=== PATIENT | male | born 1985 | race Caucasian/White ===

== ENCOUNTER 2020-10-17 12:48 | Outpatient (CLI) | payer OTHER, SELFPAY ==
[2020-10-17 14:06] LABS: Influenza Control Valid (Valid)
[2020-10-17 23:57] LABS: SARS-CoV-2 RNA PCR Negative
== END 2020-10-17 12:49 | disposition home or self-care (01) ==
LOC: CHSLAB 12:52
PROVIDERS: PCP Family Medicine; Visit Provider Family Medicine
DX: J00 Acute nasopharyngitis [common cold] (principal); Z20.828 Contact with and (suspected) exposure to other viral communicable diseases
CPT/HCPCS: 87635; 87804; C9803; U0003

== ENCOUNTER 2023-01-06 14:02 | Emergency (ER) | payer OTHER, SELFPAY ==
--- NOTE | ~2023-01-06 | XR_ITS ---
EXAM: XR foot LT min 3V DATE: 01/06/2023 14:27 HISTORY: Eversion injury, pain to medial aspect, cannot put pressure . COMPARISON: None available. FINDINGS: Normal mineralization. Comminuted fracture of the left calcaneus. Decreased Boehler's angl e. A major fracture line runs transversely through the midportion of the calcaneus, with 4 mm distrac tion/separation. Fracture lines extend to subtalar facets and the calcaneonavicular articulation. Fra cture lines also appear to extend to the superior and posterior margins of the posterior calcaneus, a combination of both tongue type and depression fracture patterns. No lytic or blastic lesion. Joint spaces are maintained. No erosion or periosteal change. Soft tissue swelling about the hindfoot. IMPRESSION: Comminuted left calcaneal fracture. Reviewed, dictated and finalized at location [facility]. [facility]
[2023-01-06 14:05] VITALS: BP 119/81; PULSE 104; RESP 18; TEMP 37.1; O2SAT 99
--- NOTE | 2023-01-06 14:09 | ED.LOWEXIN ---
HPI - Extremity Injury (Lower) General Chief Complaint: Extremity Injury, Lower Stated Complaint: left ankle injury Time Seen by Provider: 01/06/23 14:09 Source: patient and RN notes reviewed Mode of arrival: wheelchair Limitations: no limitations History of Present Illness Onset (ago): minute(s) (20) Injury: Left: ankle and foot Type of Injury: eversion Place: street/outdoors Severity: moderate Relieving factors: rest Exacerbating factors: weight bearing, movement and palpation Context: jumping ( off swing) Associated symptoms: swelling and able to partially bear weight Other symptoms: none Related Data Home Medications Medication Instructions Recorded Confirmed citalopram 20 mg tablet 20 mg PO DAILY 01/06/23 01/06/23 Allergies Allergy/AdvReac Type Severity Reaction Status Date / Time No Known Allergies Allergy Verified 01/06/23 14:08 Review of Systems Review of Systems: All systems reviewed & are unremarkable except as noted in HPI and below PMFSH Past Medical History Medical History (Updated 01/06/23 @ 14:52 by Karl Bauman MD) Depression Surgical History Surgical History (Updated 01/06/23 @ 14:19 by Kalr Bauman MD) History of appendectomy Social History Social History (Updated 01/06/23 @ 14:19 by Karl Bauman MD) Smoking packs per day: 0.5 Smoking cigarettes per day: 10.0 Smoking status: Current every day smoker Tobacco type: cigarettes Exam Const: General: healthy appearing, no acute distress and alert Nutritional Appearance: well nourished Orientation/consciousness: patient oriented x3 Limitations: no limitations HENMT: Head: normal to inspection Ears: external ears normal Eyes: Conjunctivae: conjunctivae normal Pupils: Equal, round and reactive pupils present EOM: EOMs intact bilaterally Neck: Neck: normal visual inspection Resp: Effort & Inspection: normal respiratory effort Auscultation: clear to auscultation bilaterally Cardio: Rate: regular rate Rhythm: regular rhythm GI: GI Palp: Yes Soft to palpation and No Tenderness to palpation present (GI) Auscultation: normal bowel sounds Back/Spine/Pelvis: Cervical Spine: cervical ROM normal Thoracic/Lumbar Spine: thoraco-lumbar ROM normal Skin: General skin exam: normal color Rashes: no rashes Neuro: General: patient oriented x3, moves all extremities, no focal motor deficits and CN's II-XI intact bilaterally Speech: normal speech Extrem: General: no clubbing, cyanosis or edema Left lower extremity: ankle Details: normal to inspection; no tenderness, no swelling, no ecchymosis and no crepitus and foot Details: tenderness Location: of the medial foot Location: in the mid-section and proximally; not of the base of the 5th metatarsal, vascular exam (normal) Details: normal capillary refill and motor-sensory exam (normal); no crepitus Psych: Mental Status: mental status grossly normal Affect: normal affect Attitude: cooperative Course Vital Signs Vital signs: Vital Signs Temperature 37.1 C 01/06/23 14:05 Pulse Rate 104 H 01/06/23 14:05 Respiratory Rate 18 01/06/23 14:05 Blood Pressure 119/81 01/06/23 14:05 Pulse Oximetry 99 01/06/23 14:05 Oxygen Delivery Room Air 01/06/23 14:05 Temperature 36.9 C 01/06/23 15:15 Pulse Rate 85 01/06/23 15:15 Respiratory Rate 16 01/06/23 15:15 Blood Pressure 124/60 01/06/23 15:15 Pulse Oximetry 99 01/06/23 15:15 Oxygen Delivery Room Air 01/06/23 15:15 Procedures Orthopedic Splinting/Casting Injury #1: Splinting/Casting Date: 01/06/23 Side: left Lower Extremity Injury Location: foot Pre-Formed: walking boot Pre-Procedure Neuro Vascular Exam: normal Post-Procedure Neuro Vascular Exam: normal Other Orthopedic Equipment: crutches ( Rx written) Additional Comments: initial fracture management completed in the ER MDM - Extremity Injury (Lower) Differential Diagnosis
[2023-01-06] MEDS: HYDROmorphone HCL INJ (*CRX) 2 MG/ML VIAL 1 MG IM (14:53)
[2023-01-06 15:05] VITALS: BP 112/66; PULSE 80; RESP 14; O2SAT 98
[2023-01-06 15:15] VITALS: BP 124/60; PULSE 85; RESP 16; TEMP 36.9; O2SAT 99
== END 2023-01-06 15:20 | disposition home or self-care (01) ==
PROVIDERS: Emergency Provider Emergency Medicine; PCP Family Medicine
DX: S92.015A Nondisplaced fracture of body of left calcaneus, initial encounter for closed fracture (principal); F32.A Depression, unspecified; F17.210 Nicotine dependence, cigarettes, uncomplicated; X50.0XXA Overexertion from strenuous movement or load, initial encounter
CPT/HCPCS: 73630; 96372; 99284; J1170; L2112

== ENCOUNTER 2023-04-02 13:04 | Outpatient (RCR) | payer OTHER, SELFPAY ==
--- NOTE | 2023-04-02 13:59 | PTOPEVAL1 ---
Assessment and note entered by Valentino Amin Evaluation Information Assessment Status Evaluation Diagnosis calcaneus fx left Onset 01/08/23 Subjective Information Pt. reports that he injured the left heel after jumping off a swing set. He reports that he went to the ER after the accident. He reports that he underwent surgery 2-3 weeks after the injury. Pt. reports that he has been in a boot since surgery. He reports that he is suppose to be putting about 30# through the left foot. He reports that current pain levels are 2/10, and may increase during the evening. He notices some soreness throughout the entire foot. 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 He states he had no complication prior to his injury. He reports that his goal is to return to walking normally. Reported Pain Level Pain Score 2: Self Report Assessment PT Clinical Summary Pt. is a 37 year old male post calcaneus fx. He presents with impaired gait, impaired ROM, pain and weakness on this date. Continued skilled PT is indicated in order to improve these areas to allow the pt. to be able to return to normal gait and all work related duties without limitation. Plan of Care Interventions Electrical Stimulation,Gait Training,Hot Pack/Cold Pack,Intermittent Compression,Manual Therapy, Neuro Re-education,Therapeutic Activities, Therapeutic Exercise PT Services Indicated Yes Treatment Frequency and 2x/week x 12 visits Duration These treatments will address the objective and functional deficits as defined above. The patient will be advanced safely and appropriately in order for the patient to progress towards his/her prior level of function. Additional exercises will be introduced and as well as a comprehensive home exercise program upon discharge, if needed, ?to ensure carryover of functional gains achieved in the clinic. This treatment plan has been reviewed and agreement upon by the patient.
--- NOTE | 2023-04-02 14:01 | OPREHPOC ---
Outpatient Therapy Plan of Care This is a Multidisciplinary Plan of Care that may contain components documented by all disciplines (PT, OT, and ST.) PT Problem 1 PT Problem #1 Knowledge Deficit PT Goal 1 Goal Pt. will be independent with a HEP addressing strength and mobility Target Visit 2 PT Problem 2 PT Problem #2 Impaired Gait PT Goal 1 Goal -Pt. will be appropriate to advance to FWB in the boot Target Visit 6 PT Goal 2 Goal Pt. will demonstrate equal right and left stance time over level surface Target Visit 12 PT Problem 3 PT Problem #3 Impaired Gait PT Goal 1 Goal Pt. will ambulates with regular footwear on the left for 500' wtih mild deviation Target Visit 12 PT Goal 2 Goal Pt. will be able to maintain SLS on the left x 1 minute without LOB Target Visit 12 PT Problem 4 PT Problem #4 Impaired Range of Motion PT Goal 1 Goal Pt. will achieve 10 degrees active DF or greater Target Visit 6 PT Goal 2 Goal Pt. will demonstrate 30 degrees active left ankle inversion and 20 degrees eversion Target Visit 6
--- NOTE | 2023-05-21 14:32 | PTOPEVAL1 ---
Assessment and note entered by Valentino Amin Evaluation Information Assessment Status Progress Diagnosis calcaneus fx left Onset 01/08/23 Subjective Information Pt. reports that he is still experiencing swelling . he was off his feet for the past 2 days due to reported swelling in the left leg. He states that he still has concern with inability to put his full weight through the left leg. He reports that he is no longer using his boot or crutches. he states that he still has concern with walking over uneven terrain at work. Reported Pain Level Pain Score 1: Self Report Assessment PT Clinical Summary Pt. has attended a total of 12 visits. In this time he has demonstrated progress in regards to strength, mobility and gait. Despite this progress deficits remain in mobility and gait. Given the nature of the pt. occupation continued skilled PT is indicated in order to continue to improve these areas to assist pt. in transition back to work related duties. Plan of Care Interventions Gait Training,Intermittent Compression,Manual Therapy,Neuro Re-education,Patient/Caregiver Educati,Therapeutic Activities,Therapeutic Exercise PT Services Indicated Yes Treatment Frequency and 3x/week x 12 visits. Consider work conditioning. Duration These treatments will address the objective and functional deficits as defined above. The patient will be advanced safely and appropriately in order for the patient to progress towards his/her prior level of function. Additional exercises will be introduced and as well as a comprehensive home exercise program upon discharge, if needed, ?to ensure carryover of functional gains achieved in the clinic. This treatment plan has been reviewed and agreement upon by the patient.
--- NOTE | 2023-05-21 14:32 | OPREHPOC ---
Outpatient Therapy Plan of Care This is a Multidisciplinary Plan of Care that may contain components documented by all disciplines (PT, OT, and ST.) PT Problem 1 PT Problem #1 Knowledge Deficit PT Goal 1 Goal Pt. will be independent with a HEP addressing strength and mobility Target Visit 2 Progress Met PT Problem 2 PT Problem #2 Impaired Gait PT Goal 1 Goal -Pt. will be appropriate to advance to FWB in the boot Target Visit 6 Progress Met PT Goal 2 Goal Pt. will demonstrate equal right and left stance time over level surface Target Visit 12 Progress Partially Met PT Problem 3 PT Problem #3 Impaired Gait PT Goal 1 Goal Pt. will ambulates with regular footwear on the left for 500' wtih mild deviation Target Visit 12 Progress Partially Met PT Goal 2 Goal Pt. will be able to maintain SLS on the left x 1 minute without LOB Target Visit 12 Progress Not Met Comment Pt. still requires handhold PT Problem 4 PT Problem #4 Impaired Range of Motion PT Goal 1 Goal Pt. will achieve 10 degrees active DF or greater Target Visit 6 Progress Partially Met PT Goal 2 Goal Pt. will demonstrate 30 degrees active left ankle inversion and 20 degrees eversion Target Visit 6 Progress Partially Met
--- NOTE | 2023-06-24 17:16 | PCPTNOTE ---
patient was a no call/no show for PT daily visit today. he is scheduled for return to skilled PT on 06/26/23.
== END 2023-06-21 23:59 | disposition home or self-care (01) ==
LOC: CHSPT 13:04
DX: S92.002D Unspecified fracture of left calcaneus, subsequent encounter for fracture with routine healing (principal)
CPT/HCPCS: 97016; 97110; 97112; 97116; 97150; 97161; 97530